=== PATIENT | male | born 1975 | race Two or more races ===

== ENCOUNTER 2017-01-20 20:39 | Emergency (ER) | payer BC ==
[~2017-01-20] VITALS: Ht 185.4 cm; Wt 99.8 kg
--- NOTE | 2017-01-20 20:39 | NUR ---
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 PT PAIN FREE UPON ARRIVAL TO ER. PT STATES "I THINK IT MIGHT BE ANXIETY". PT AAOX4 NO ACUTE DISTRESS NOTED, RESP EVEN AND UNLABORED. SKIN WARM NONDIAPHORETIC. PLACE PT ON CARDIAC MONITORING, CONTINUOUS POX, O2@2L/NC. PENDING ER MD SAINZ.
[2017-01-20 21:07] LABS: BASOPHILS # (AUTO) 0.1 /CMM (0.0-0.2); BASOPHILS % (AUTO) 0.7 % (0.0-2.0); EOSINOPHILS # (AUTO) 0.1 /CMM (0.0-0.7); HEMATOCRIT 41 % (39-51); HEMOGLOBIN 13.9 g/dL (13.5-17.5); LYMPHOCYTES # (AUTO) 3.3 /CMM (0.8-4.8); MEAN CORPUSCULAR HEMOGLOBIN 29 PG (26.0-33.0); MEAN CORPUSCULAR HGB CONC 34 g/dl (31.0-36.0); MEAN CORPUSCULAR VOLUME 84 fL (80-96); MONOCYTES % (AUTO) 9.8 % (2.0-12.0); NEUTROPHILS # (AUTO) 5.7 /CMM (1.8-8.9); NEUTROPHILS % (AUTO) 56.5 % (43.0-81.0); PLATELET COUNT (AUTO) 280 /CMM (150-450); RDW COEFFICIENT OF VARIATION 12.1 (11.5-15.0); RED BLOOD CELL COUNT(AUTO) 4.88 MIL/uL (4.5-6.0); WHITE BLOOD COUNT (AUTO) 10.2 K/uL (4.3-11.0)
[2017-01-20 21:15] LABS: CALCIUM, SERUM 8.5 mg/dL (8.5-10.1); CARBON DIOXIDE 30 mmol/L (21-32); CHLORIDE 106 mmol/L (98-107); CREATININE 1.5 mg/dL (0.6-1.3); GFR 51 mL/min (>60); GLUCOSE 114 mg/dL (74-106); POTASSIUM 3.5 mmol/L (3.5-5.1); SODIUM SERUM 141 mmol/L (136-145); UREA NITROGEN, BLOOD 20 mg/dL (7-18)
[2017-01-20 21:24] LABS: TROPONIN I < 0.017 ng/mL (0.00-0.056)
[2017-01-20 21:47] LABS: D-DIMER 0.19 mg/L(FEU (0.17-0.50); INR 1.02 (0.87-1.13); PROTHROMBIN TIME 10.9 SECS (9.5-12.7)
--- NOTE | 2017-01-20 21:56 | NUR ---
PT SITTING UP IN BED, NO ACUTE DISTRESS NOTED. PT DENIES PAIN OR DISCOMFORT AT THIS TIME. CALL LIGHT CHARLES SINGLETON.
[2017-01-20] MEDS ORDERED: ONDANSETRON HCL/PF - ER 4 MG/2 ML VIAL IV ONE (22:00)
--- NOTE | 2017-01-20 22:06 | NUR ---
DR. SANCHEZ AT BEDSIDE TALKING TO PT.
--- NOTE | 2017-01-20 22:56 | NUR ---
PT FAMILY MEMBER AT BEDSIDE.
--- NOTE | 2017-01-20 23:54 | NUR ---
REPEAT TROPONIN DRAWN BY FINANCIAL MANAGEMENT ANALYST.
[2017-01-21 00:29] VITALS: BP 113/55
--- NOTE | 2017-01-21 00:29 | NUR ---
REPEAT TROPONIN RESULT RECEIVED. ER MD AWARE.
--- NOTE | 2017-01-21 00:30 | NUR ---
Patient discharged to home in stable condition. Written and verbal after care instructions given. Patient verbalizes understanding of instruction. ambulatory with a steady gait noted. pt aaox4 no acuet distress noted, resp even and unlabored. pt remains pain free at this time.
== END 2017-01-21 00:44 | disposition home or self-care (01) ==
LOC: ER 20:40
DX: R07.2 Precordial pain (principal); N28.9 Disorder of kidney and ureter, unspecified; R79.1 Abnormal coagulation profile
CPT/HCPCS: 36415; 71010-TC; 80048-TC; 84484-TC; 85025-TC; 85378-TC; 85730-TC; A4606; Z7610